=== PATIENT | female | born 1985 | race Caucasian/White ===

== ENCOUNTER 2020-12-07 12:14 | Emergency (ER) | payer OTHER ==
[~2020-12-07] VITALS: Ht 160 cm; Wt 56.7 kg
[~2020-12-07 12:14] MED LIST: AMOXICILLIN500 MG PO; AMOXIL250 MG/5 M PO; CLINDAMYCIN HC300 MG PO; DIFLUCAN150 MG PO; MOTRIN800 MG PO; NAPROSYN500 MG PO; NKHM; NORFLEX100 MG PO; PERCOCET 325 MG1 TA2 PO; PHENERGAN W/ DE30 ML PO; PREDNICOT10 MG PO; PREDNICOT20 MG PO; PROAIR HFA0.09 MG/AC INH; TORADOL10 MG PO
[2020-12-07] MEDS ORDERED: Motrin,Rufen800 MG PO (14:16)
== END 2020-12-07 14:40 | disposition home or self-care (01) ==
LOC: ED 12:14
DX: S93.401A Sprain of unspecified ligament of right ankle, initial encounter (principal); M79.671 Pain in right foot; F17.200 Nicotine dependence, unspecified, uncomplicated; Z79.899 Other long term (current) drug therapy; X50.1XXA Overexertion from prolonged static or awkward postures, initial encounter; Y93.72 Activity, wrestling; Y92.89 Other specified places as the place of occurrence of the external cause; Y99.8 Other external cause status

== ENCOUNTER 2021-03-10 19:42 | Emergency (ER) | payer OTHER ==
[~2021-03-10] VITALS: Ht 160 cm; Wt 56.7 kg
[~2021-03-10 19:42] MED LIST changes: +Motrin,Rufen800 MG PO
== END 2021-03-10 23:11 | disposition left against medical advice (07) ==
LOC: ED 19:42
DX: R07.81 Pleurodynia (principal); Z53.21 Procedure and treatment not carried out due to patient leaving prior to being seen by health care provider